=== PATIENT | female | born 1950 | race Caucasian/White ===

== ENCOUNTER → 2024-05-04 | Outpatient (CLI) | payer OTHER | END | disposition home or self-care (01) | LOC: RESCLI 13:35 | PROVIDERS: ATTEND Student in an Organized Health Care Education/Training Program | DX: I48.91 Unspecified atrial fibrillation (principal); K22.70 Barrett's esophagus without dysplasia; G45.9 Transient cerebral ischemic attack, unspecified; E55.9 Vitamin D deficiency, unspecified; I48.92 Unspecified atrial flutter; Z88.1 Allergy status to other antibiotic agents; Z88.8 Allergy status to other drugs, medicaments and biological substances; Z79.899 Other long term (current) drug therapy; Z98.890 Other specified postprocedural states ==